=== PATIENT | male | born 1960 | race Caucasian/White ===

== ENCOUNTER 2020-06-20 14:20 | Emergency (ER) | payer OTHER ==
[2020-06-20 14:25] VITALS: BP 150/84; PULSE 69; RESP 20; TEMP 98.7
--- NOTE | 2020-06-20 15:13 | XR ---
Left foot HISTORY: Pain, trauma 3 views of the left foot Bone mineralization, joint spaces and alignment are maintained. There is soft tissue swelling.: No ac pilot point fracture or dislocation, follow-up as indicated for persistent symptoms.
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
[2020-06-20] MEDS ORDERED: ACET/COD 300 MG/30 MG STARTER PACK 6 TAB BTL PO STA (15:27)
== END 2020-06-20 15:37 | disposition home or self-care (01) ==
LOC: EC 14:20
DX: S90.32XA Contusion of left foot, initial encounter (principal); W20.8XXA Other cause of strike by thrown, projected or falling object, initial encounter; Y92.69 Other specified industrial and construction area as the place of occurrence of the external cause; Y99.0 Civilian activity done for income or pay
CPT/HCPCS: 99283

== ENCOUNTER → 2020-06-27 | Outpatient (CLI) | payer OTHER ==
--- NOTE | 2020-06-27 15:49 | XR ---
EXAMINATION TYPE: XR foot complete RT DATE OF EXAM: 06/27/2020 COMPARISON: NONE HISTORY: Pain TECHNIQUE: Three views are submitted. FINDINGS: The osseous structures are intact. There is no acute fracture or dislocation. Arthropathy of the f irst MTP joint. Tiny plantar calcaneal spur and vascular calcifications noted.. IMPRESSION: 1. No acute fracture or dislocation. If symptoms persist, follow-up exam in 7 to 10 days could be ob tained.
== END | disposition home or self-care (01) ==
LOC: RADXRMAIN 15:19
PROVIDERS: ATTEND Emergency Medicine
DX: S90.31XD Contusion of right foot, subsequent encounter (principal)

== ENCOUNTER → 2020-09-26 | Outpatient (CLI) | payer OTHER ==
--- NOTE | 2020-09-26 19:31 | CT ---
EXAMINATION TYPE: CT ChestAbdPelvis wo con DATE OF EXAM: 09/26/2020 COMPARISON: None available. HISTORY: abnormal weight loss CT DLP: 320.9 mGycm. Automated Exposure Control for Dose Reduction was Utilized. TECHNIQUE: CT scan of the thorax, abdomen and pelvis is performed without IV contrast. FINDINGS: LUNGS: There is moderate to severe centrilobular emphysema with large left apical bleb. There is smal l opacity in the right upper lobe. There is a 2.5 x 2.4 cm right hilar mass. There is no pleural effu yaa or pneumothorax seen. MEDIASTINUM: There is enlarged right paratracheal lymph node measuring 1.5 cm short axis. No perica rdial effusion is seen. OTHER: No additional significant abnormality is seen. LIVER/GB: Questionable low attenuating hepatic focus. PANCREAS: No significant abnormality is seen. SPLEEN: No significant abnormality is seen. ADRENALS: No significant abnormality is seen. KIDNEYS: No significant abnormality is seen. BOWEL: Colonic diverticulosis. Otherwise no significant abnormality is seen. GENITAL ORGANS: No gross abnormality seen. LYMPH NODES: No greater than 1cm abdominal or pelvic lymph nodes are appreciated. OSSEOUS STRUCTURES: No significant abnormality is seen. OTHER: Moderate abdominal aortic atherosclerotic disease. No significant additional abnormality is se en. IMPRESSION: 2.5 cm right hilar mass with mediastinal lymphadenopathy, concerning for malignancy. Recommend approp riate workup. Moderate to severe emphysema with large left apical bleb. Additional small right upper lobe opacity may represent lymphangitic metastatic spread versus superim posed infiltrates. Questionable right hepatic lesion. Otherwise no acute abnormality of the abdomen/pelvis.
== END | disposition home or self-care (01) ==
LOC: RADCTMAIN 17:56
PROVIDERS: ATTEND Physician Assistant
DX: J43.9 Emphysema, unspecified (principal); R59.0 Localized enlarged lymph nodes; R91.8 Other nonspecific abnormal finding of lung field
CPT/HCPCS: 71250; 74176

== ENCOUNTER 2020-10-16 10:14 | Day surgery (SDC) | payer OTHER ==
[2020-10-14 11:36] VITALS: BMI 16.4
[~2020-10-16 10:14] MED LIST: ALBUTEROL NEB (CONC) 2.5 MG/0.5 ML INHALATION ONE; ATROPINE SULFATE 0.4 MG/ML 1 ML VIAL IM ONE; DEXAMETHASONE SOD PHOSPHATE 4 MG/ML 1 ML VIAL IV ONE; HYDROmorphone 0.5 MG/0.5 ML SYRINGE IVP PRN; LACTATED RINGERS 1,000 ML IV SCH; LIDOCAINE 1% (10MG/ML) FOR IV START INTRADERMA PRN; LIDOCAINE 2% (PF) 20 MG/ML 5 ML VIAL INHALATION ONE; LIDOCAINE VISCOUS 300 MG/15 ML CUP MUCOUS MEM ONE; MIDAZOLAM 2 MG/2 ML VIAL IV PRN; SODIUM CHLORIDE 0.9% 1,000 ML IV SCH
[2020-10-16] MEDS ORDERED: fentaNYL (PF) 50 MCG/ML 2 ML AMP IV ONE (12:12)
--- NOTE | 2020-10-16 12:18 | CT ---
EXAMINATION TYPE: CT Chest cheri Hopson Protocol DATE OF EXAM: 10/16/2020 COMPARISON: CT 20 days ago HISTORY: Bronchial navigation. Prior Abnormal CT. CT DLP: 656 mGycm Automated exposure control for dose reduction was used. CT chest without contrast with full inspirati on and expiration. FINDINGS: Exam is for bronchoscopy planning and not for diagnostic purposes. Moderate to advanced underlying emphysematous change is redemonstrated greatest in the upper lungs wi th upper lung parenchymal scarring. There is persistent right hilar lobulated mass axial image 27 ser ies 6 worrisome for neoplasm. Bulla and blebs in the lung apices again seen. IMPRESSION: As above.
[2020-10-16] MEDS ORDERED: SUCCINYLCHOLINE CHLORIDE VIAL 200 MG/10 ML VIAL IV ONE (12:46)
[2020-10-16] MEDS ORDERED: LIDOCAINE 1% INJ 10MG/ML (20 ML MDV) ONE (12:46)
[2020-10-16] MEDS ORDERED: PROPOFOL 10 MG/ML 20 ML VIAL IV ONE (12:46)
[2020-10-16 14:11] VITALS: RESP 16; TEMP 98
--- NOTE | 2020-10-16 14:27 | XR ---
EXAMINATION TYPE: XR chest 1V portable DATE OF EXAM: 10/16/2020 COMPARISON: 07/13/2015 HISTORY: Post bronchoscopy TECHNIQUE: Single frontal view of the chest is obtained. FINDINGS: Large bulla in the left upper lobe noted. There is no sizable pneumothorax on the right. L obulated mass in the right suprahilar region with additional suspected nodules in the peripheral ifeanyi in of the right upper lobe. Diffuse COPD. Heart size normal. Arthropathy of the shoulders. IMPRESSION: 1. COPD with suspected right perihilar mass and possible additional satellite nodules in the right up per lobe. 2. No sizable pneumothorax post bronchoscopy. 3. Large bulla left lung apex.
[2020-10-16] MEDS ORDERED: hydrALAZINE HCL 20 MG/ML 1 ML VIAL IVP ONE (16:15)
[2020-10-16] MEDS ORDERED: hydrALAZINE HCL 20 MG/ML 1 ML VIAL ONE (16:16)
[2020-10-16 16:59] VITALS: BP 155/76; PULSE 55
--- NOTE | 2020-10-16 20:46 | PCN ---
PROCEDURE NOTE PULMONARY/CRITICAL CARE PROCEDURE NOTE: PROCEDURE: Navigational bronchoscopy. PREOPERATIVE DIAGNOSIS: Right lung mass. POSTOPERATIVE DIAGNOSIS: Right lung mass. OPERATORS: 1. Dr. Mcclelland. 2. Dr. Olson. 3. Dr. Kam. There was informed consent and universal timeout. Jamaal Guido CRNA, and Dr. Haji provided general anesthesia. PROCEDURE DESCRIPTION: The procedure was done in room #1 Endoscopy. The patient was given general anesthetic. After the patient was adequately anesthetized, the bronchoscope was inserted through the bronchoscope adapter connected to the endotracheal tube. I did a thorough inspection of both lungs initially. The left lung was normal. The right lung, including the right middle lobe and right lower lobe, were normal. The right upper lobe had a definitive mass noted obstructing the right upper lobe. This is where we concentrated our biopsies and our sampling. Under electromagnetic navigational guidance, we initially did transbronchial needle aspirations of the lesion in the right upper lobe. Subsequent to that, we did multiple endobronchial biopsies into the same lesion. We did brushes as well to that same lesion in the right upper lobe. Finally we did washes in the right upper lobe. The patient tolerated the procedure well. There was minimal to no bleeding. There was no immediate complication. The patient was stable during the anesthetic. The bronchoscope was withdrawn and the patient will be recovered. I will talk to the patient's mother, who apparently brought the patient to the hospital today. MMTRISHAL / LIZZYN: [id number] /
== END 2020-10-16 16:50 | disposition home or self-care (01) ==
LOC: ORWHC2ENDO 10:14
PROVIDERS: ATTEND Internal Medicine Critical Care Medicine
DX: R91.8 Other nonspecific abnormal finding of lung field (principal); Z79.899 Other long term (current) drug therapy; J43.9 Emphysema, unspecified; G89.29 Other chronic pain; M54.5 Low back pain; R63.4 Abnormal weight loss; F17.200 Nicotine dependence, unspecified, uncomplicated; Z83.3 Family history of diabetes mellitus; Z82.49 Family history of ischemic heart disease and other diseases of the circulatory system; Z80.9 Family history of malignant neoplasm, unspecified; Z90.89 Acquired absence of other organs; Z79.891 Long term (current) use of opiate analgesic; Z79.51 Long term (current) use of inhaled steroids
CPT/HCPCS: 88104; 88108; 88305; 88173; 88342; 88341; 87070; 87205; 71045; 71250; 31628; 31625; 31623; 31627; J0330; J0360; J2001; J3010; J2704; 31624

== ENCOUNTER → 2020-10-18 | Outpatient (CLI) | payer OTHER ==
--- NOTE | 2020-10-18 16:27 | PE ---
Nuclear medicine PET/CT HISTORY: R 91.8, lung mass initial Patient received 11.4 mCi F-18 FDG intravenously delayed scanning was performed from the skull base t o the mid thighs. Localization and attenuation correction CT scan was performed. Correlation to chest abdomen pelvis CT 09/26/2020 Chest and neck: The right hilar mass, retrocaval pretracheal node enlargement shows associated hyperm etabolic uptake. There is extensive emphysema present. There is no cervical adenopathy. The supraclav icular region on the right shows a focus of hypermetabolic uptake. No pleural or pericardial effusion . ABDOMEN: Multiple low dense foci scattered within liver shows associated hypermetabolic uptake. No de finite retroperitoneal adenopathy. Osseous structures show diffuse scattered foci of hypermetabolic uptake including the pelvis, proxima l left femur, spine, ribs, sternum and manubrium, proximal left humerus, bilateral scapulae. IMPRESSION: Diffuse metastatic disease to the liver, bones and nodes as described.
== END | disposition home or self-care (01) ==
LOC: RADPETMAIN 12:43
PROVIDERS: ATTEND Internal Medicine Critical Care Medicine
DX: C78.7 Secondary malignant neoplasm of liver and intrahepatic bile duct (principal); C79.51 Secondary malignant neoplasm of bone
CPT/HCPCS: 78815; A9552

== ENCOUNTER 2020-10-21 23:09 | Emergency (ER) | payer OTHER ==
[2020-10-21 23:16] VITALS: RESP 16; TEMP 97.5
[2020-10-22] MEDS ORDERED: SODIUM CHLORIDE 0.9% 500 ML 500 ML IV STA (00:35)
[2020-10-22] MEDS ORDERED: MORPHINE SULFATE 4 MG/ML SYRINGE IV STA (00:35)
[2020-10-22] MEDS ORDERED: KETOROLAC 15 MG/ML 1 ML VIAL IVP STA (00:35)
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
--- NOTE | 2020-10-22 00:40 | XR ---
EXAM: XR Abdomen, 1 View CLINICAL HISTORY: abdominal pain TECHNIQUE: Frontal supine view of the abdomen/pelvis. COMPARISON: No relevant prior studies available. FINDINGS: Gastrointestinal tract: Unremarkable. No dilation. Bones/joints: Unremarkable. IMPRESSION: Normal abdominal x-ray.
[2020-10-22 00:47] LABS: Basophils # (A) 0.1 k/uL (0-0.2); Basophils % (A) 1 %; Eosinophils # (A) 0.1 k/uL (0-0.7); Eosinophils % (A) 1 %; HGB 13.7 gm/dL (13.0-17.5); Lymphocytes # (A) 1.1 k/uL (1.0-4.8); Lymphocytes % (A) 13 %; MCH 31.6 pg (25.0-35.0); MCHC 34.4 g/dL (31.0-37.0); MCV 91.9 fL (80.0-100.0); Mean Platelet Volume 7.1; Monocytes # (A) 0.5 k/uL (0-1.0); Monocytes % (A) 7 %; Neutrophils # (A) 6.6 k/uL (1.3-7.7); Neutrophils % (A) 78 %; Platelet Count 265 k/uL (150-450); RBC 4.35 m/uL (4.30-5.90); RDW 14.3 % (11.5-15.5); WBC 8.4 k/uL (3.8-10.6)
[2020-10-22 00:58] LABS: ALT 67 U/L (4-49); AST 132 U/L (17-59); African American GFR (CKD) >90 (>60 ml/min/1.73 sqM); Alkaline Phosphatase 448 U/L (38-126); Amylase 128 U/L (30-110); Anion Gap 7 mmol/L; Blood Urea Nitrogen 15 mg/dL (9-20); Calcium 9.3 mg/dL (8.4-10.2); Carbon Dioxide 27 mmol/L (22-30); Chloride 103 mmol/L (98-107); Glucose 115 mg/dL (74-99); Lipase 131 U/L (23-300); Non-African American GFR(CKD) >90 (>60 ml/min/1.73 sqM); Sodium 137 mmol/L (137-145); Total Bilirubin 0.7 mg/dL (0.2-1.3); Total Protein 6.9 g/dL (6.3-8.2)
[2020-10-22] MEDS ORDERED: HYDROmorphone 1 MG/ML 1 ML SYRINGE IVP STA ×2 (00:58→02:03)
[2020-10-22 04:14] VITALS: BP 170/90; PULSE 55
== END 2020-10-22 04:41 | disposition home or self-care (01) ==
LOC: EC 23:09
DX: C34.90 Malignant neoplasm of unspecified part of unspecified bronchus or lung (principal); Z87.891 Personal history of nicotine dependence; Z90.09 Acquired absence of other part of head and neck
CPT/HCPCS: 80053; 82150; 83690; 85025; 74018; 99284; 96374; 96375 ×2; 96376; J2270; J1170; J1885